=== PATIENT | female | born 1990 | race Two or more races ===

== ENCOUNTER 2017-12-08 16:21 | Emergency (ER) | payer SELFPAY ==
[2017-01-22 16:11] VITALS: BP 102/66
[~2017-12-08 16:21] MED LIST: IBUP-1060 PO
== END 2017-12-08 16:55 | disposition left against medical advice (07) ==
LOC: ER 16:21
DX: R10.9 Unspecified abdominal pain (principal); R11.10 Vomiting, unspecified; Z53.21 Procedure and treatment not carried out due to patient leaving prior to being seen by health care provider